=== PATIENT | female | born 1955 | race Asian ===

== ENCOUNTER 2018-08-09 15:24 | Outpatient (CLI) | payer OTHER | END 2018-08-09 21:09 | disposition home or self-care (01) | LOC: RAD 15:24 | DX: M47.817 Spondylosis without myelopathy or radiculopathy, lumbosacral region (principal) ==

== ENCOUNTER 2018-08-29 08:56 | Day surgery (SDC) | payer OTHER | END 2018-08-29 11:35 | disposition home or self-care (01) | LOC: OR 08:56 | PROC: 3E0T3TZ Introduction of Destructive Agent into Peripheral Nerves and Plexi, Percutaneous Approach (ICD-10-PCS; principal; 2018-08-29) | PROC: BR16YZZ Fluoroscopy of Lumbar Facet Joint(s) using Other Contrast (ICD-10-PCS; 2018-08-29) | DX: M47.817 Spondylosis without myelopathy or radiculopathy, lumbosacral region (principal) | CPT/HCPCS: J2001 ==

== ENCOUNTER 2018-09-12 10:13 | Day surgery (SDC) | payer OTHER ==
[~2018-09-12] VITALS: Ht 177.8 cm; Wt 104.3 kg
== END 2018-09-12 13:45 | disposition home or self-care (01) ==
LOC: OR 10:13
PROC: 3E0T3TZ Introduction of Destructive Agent into Peripheral Nerves and Plexi, Percutaneous Approach (ICD-10-PCS; principal; 2018-09-12)
PROC: BR16YZZ Fluoroscopy of Lumbar Facet Joint(s) using Other Contrast (ICD-10-PCS; 2018-09-12)
DX: M47.817 Spondylosis without myelopathy or radiculopathy, lumbosacral region (principal)
CPT/HCPCS: J2001

== ENCOUNTER 2019-01-22 08:16 | Day surgery (SDC) | payer OTHER | END 2019-01-22 10:40 | disposition home or self-care (01) | LOC: OR 08:16 | PROC: 3E0R33Z Introduction of Anti-inflammatory into Spinal Canal, Percutaneous Approach (ICD-10-PCS; principal; 2019-01-22) | PROC: B01BYZZ Fluoroscopy of Spinal Cord using Other Contrast (ICD-10-PCS; 2019-01-22) | DX: M51.16 Intervertebral disc disorders with radiculopathy, lumbar region (principal) | CPT/HCPCS: J1020 ==

== ENCOUNTER 2019-02-19 08:58 | Day surgery (SDC) | payer OTHER | END 2019-02-19 10:17 | disposition home or self-care (01) | LOC: OR 08:58 | PROC: 3E0R33Z Introduction of Anti-inflammatory into Spinal Canal, Percutaneous Approach (ICD-10-PCS; principal; 2019-02-19) | PROC: B01BYZZ Fluoroscopy of Spinal Cord using Other Contrast (ICD-10-PCS; 2019-02-19) | DX: M51.16 Intervertebral disc disorders with radiculopathy, lumbar region (principal) | CPT/HCPCS: J1020 ==

== ENCOUNTER 2020-01-28 08:51 | Day surgery (SDC) | payer OTHER | END 2020-01-28 10:08 | disposition home or self-care (01) | LOC: OR 08:51 | PROC: 3E0R33Z Introduction of Anti-inflammatory into Spinal Canal, Percutaneous Approach (ICD-10-PCS; principal; 2020-01-28) | PROC: B01BYZZ Fluoroscopy of Spinal Cord using Other Contrast (ICD-10-PCS; 2020-01-28) | DX: M51.16 Intervertebral disc disorders with radiculopathy, lumbar region (principal) | CPT/HCPCS: J1020 ==